=== PATIENT | female | born 1975 | race Caucasian/White ===

== ENCOUNTER 2018-08-17 07:33 | Day surgery (SDC) | payer OTHER ==
--- NOTE | 2018-08-17 07:16 | PDGENHP ---
History and Physical - Chief Complaint Preop: Multiple large endometriomas - History of Present Illness Corina is a 43 yo who is known to our clinic, has a h/o endometriosis with known endometriomas. Originally presented in Summer 2015 with ruptured hemorrhagic ovarian cyst to the ER and BP took her to the OR for DxLS, evac of hemoperitoneum, and found moderate endometriosis at that time. Endo at that time involved both ovaries and posterior culdesac and appendix was normal. Following that surgery she pursued 6 months of homeopathic tx for endometriosis , but F/u US approximately 1 yr later and saw the current endometriomas had appeared, but were smaller - 5 and 6cm on the right and 5cm on the left/ posterior. Surgery was discussed at that time, but pt deferred. Now presents with palpable, clearly enlarging cysts, sporadic pelvic pain. Dysmenorrhea. US in our office (07/28/18): Елена 8.3 x 3.4 x 5.1cm ES .47cm 3 Large appearing endometriomas #1 (largest) = Right superior, 8.7 x 7.1 x 8.2cm #2 = Right inferior, 4.6 x 4.3 x 4.3cm #3 = 8.8 x 5 x 5.1cm Both ovaries WNL, no FF seen History Information - Allergies/Home Medication List Allergies/Adverse Reactions: No Known Allergies Allergy (Unverified 11/04/15 11:33) Home Medications: Herbals/Supplements -Info Only 1 ea PO DAILY 11/05/15 [Last Taken 11/05/15] I have personally reviewed and updated: family history, medical history, social history, surgical history Past Medical History: Endometriosis - Surgical History Additional surgical history: DxLS 2016, Bilateral inguinal hernias, bilateral ACL, wisdom teeth - Social History Smoking Status: Never smoked Review of Systems Review of Systems: ROS: 10pt was reviewed & negative except for what was stated in HPI & below Physical Exam Physical Exam: Constitutional: no apparent distress, appears nourished, not in pain Eyes: PERRL Ears, Nose, Mouth, Throat: moist mucous membranes Respiratory: no respiratory distress Assessment & Plan Assessment: Preop: Robotically-assisted, diagnostic laparoscopy, bilateral ovarian cystectomies removal of endometriomas/endometriosis, possible oophorectomy, possible open. - Ancef 2 g. - Pyridium 200mg PO x 1 PREOP. - Routine preop orders. JM
[2018-08-17] MEDS ORDERED: PHENAZOPYRIDINE HCL 200 MG TAB PO ONE (07:46)
[2018-08-17] MEDS ORDERED: ceFAZolin 2 GM/DEXTROSE 100 ML IV ONE (07:46)
[2018-08-17] MEDS ORDERED: MIDAZOLAM 2 MG/2 ML VIAL IVP ONE ×2 (08:13→08:51)
--- NOTE | 2018-08-17 08:14 | PDANEPAE ---
ANE Past Medical History - Cardiovascular History Hx Hypertension: No Hx Arrhythmias: No Hx Chest Pain: No Hx Coronary Artery / Peripheral Vascular Disease: No Hx CHF / Valvular Disease: No Hx Palpitations: No - Pulmonary History Hx COPD: No Hx Asthma/Reactive Airway Disease: No Hx Recent Upper Respiratory Infection: No Hx Oxygen in Use at Home: No Hx Sleep Apnea: No Sleep Apnea Screening Result - Last Documented: Negative - Neurologic History Hx Cerebrovascular Accident: No Hx Seizures: No Hx Dementia: No - Endocrine History Hx Diabetes: No - Renal History Hx Renal Disorders: No - Liver History Hx Hepatic Disorders: No - Neurological & Psychiatric Hx Hx Neurological and Psychiatric Disorders: No - Cancer History Hx Cancer: No - Congenital Disorder History Hx Congenital Disorders: No - GI History Hx Gastrointestinal Disorders: No - Other Health History Other Health History: NONE - Chronic Pain History Chronic Pain: Yes (LOWER ABD) - Surgical History Prior Surgeries: LT OVARIAN CYSTECTOMY 11/05/15. SAYRA KNEE ACL. SAYRA ING HERNIA ANE Review of Systems Review of Systems: - Exercise capacity METS (RN): 6 METS ANE Patient History - Allergies Allergies/Adverse Reactions: No Known Allergies Allergy (Unverified 11/04/15 11:33) - Home Medications Home Medications: Herbals/Supplements -Info Only 1 ea PO DAILY 11/05/15 [Last Taken 1 Week Ago ~] - NPO status NPO Since - Liquids (Date): 08/17/18 NPO Since - Liquids (Time): 06:00 NPO Since - Solids (Date): 08/16/18 NPO Since - Solids (Time): 19:00 - Smoking Hx Smoking Status: Never smoked ANE Labs/Vital Signs - Vital Signs Blood Pressure: 135/71 Heart Rate: 90 Respiratory Rate: 16 O2 Sat (%): 100 Height: 166.37 cm Weight: 58.967 kg ANE Physical Exam - Airway Neck exam: FROM Mallampati Score: Class 2 Mouth exam: normal dental/mouth exam - Pulmonary Pulmonary: clear to auscultation - Cardiovascular Cardiovascular: regular rate and rhythym - ASA Status ASA Status: II ANE Anesthesia Plan Anesthesia Plan: general endotracheal anesthesia
[2018-08-17] MEDS ORDERED: BUPIVACAINE/EPI 0.5% 30 ML SDV ONE (08:15)
[2018-08-17] MEDS ORDERED: SCOPOLAMINE HYDROBROMIDE 1 MG/3 DAYS PATCH TD ONE ×2 (08:52→08:56)
[2018-08-17] MEDS ORDERED: HYDROmorphONE/DILAUDID 2 MG/ML INJ ONE ×2 (09:00→11:53)
[2018-08-17] MEDS ORDERED: PROPOFOL 200 MG/20 ML VIAL ONE (09:00)
[2018-08-17] MEDS ORDERED: PROPOFOL/EMULSION 500 MG/50 ML BOTTLE IV ONE ×2 (09:00→10:00)
[2018-08-17] MEDS ORDERED: fentaNYL 100 MCG/2 ML INJ ONE (09:00)
[2018-08-17] MEDS ORDERED: ROCURONIUM 50 MG/5 ML VIAL ONE (09:01)
[2018-08-17] MEDS ORDERED: DEXAMETHASONE 4 MG/ML VIAL ONE (09:06)
[2018-08-17] MEDS ORDERED: LIDOCAINE 2% 100 MG/5 ML SYR ONE (09:12)
[2018-08-17] MEDS ORDERED: GLYCOPYRROLATE 0.2 MG/1 ML VIAL ONE (09:46)
[2018-08-17] MEDS ORDERED: ePHEDrine SULFATE 25 MG/5 ML SYR ONE (09:50)
[2018-08-17] MEDS ORDERED: PHENYLEPHRINE HCL 100 MCG/ML SYR ONE (09:52)
[2018-08-17] MEDS ORDERED: ONDANSETRON 4 MG/2 ML VIAL ONE (11:13)
[2018-08-17] MEDS ORDERED: KETOROLAC 30 MG/1 ML SDV ONE (11:13)
[2018-08-17] MEDS ORDERED: ALBUTEROL 3 ML DEYVIAL IH PRN (11:23)
[2018-08-17] MEDS ORDERED: MEPERIDINE 25 MG/0.5 ML AMP IVP PRN (11:23)
[2018-08-17] MEDS ORDERED: HYDROCODONE/APAP 5/325 TAB PO PRN (11:23)
[2018-08-17] MEDS ORDERED: PROMETHAZINE HCL 25 MG/ML INJ IVP PRN (11:23)
[2018-08-17] MEDS ORDERED: METOCLOPRAMIDE 10 MG/2 ML VIAL IVP PRN (11:23)
[2018-08-17] MEDS ORDERED: LR 500 ML IV PRN (11:23)
[2018-08-17] MEDS ORDERED: ONDANSETRON 4 MG/2 ML VIAL IVP PRN ×2 (11:23→12:17)
[2018-08-17] MEDS ORDERED: NALOXONE HCL 0.4 MG/ML INJ IVP PRN (11:23)
[2018-08-17] MEDS ORDERED: DIAZEPAM 10 MG/2 ML SYR IVP PRN (11:23)
[2018-08-17] MEDS ORDERED: fentaNYL 100 MCG/2 ML INJ IVP PRN (11:23)
[2018-08-17] MEDS ORDERED: ACETAMINOPHEN 500 MG TAB PO PRN (11:23)
[2018-08-17] MEDS ORDERED: oxyCODONE IR 5 MG TAB PO PRN (11:23)
[2018-08-17] MEDS ORDERED: DEXAMETHASONE 4 MG/ML VIAL IVP PRN (11:23)
[2018-08-17] MEDS ORDERED: HYDROmorphONE/DILAUDID 1 MG/ML INJ IVP PRN (11:23)
[2018-08-17] MEDS ORDERED: METOCLOPRAMIDE 10 MG/2 ML VIAL ONE (11:48)
[2018-08-17] MEDS ORDERED: KETOROLAC 30 MG/1 ML SDV IVP ONE (12:17)
[2018-08-17] MEDS ORDERED: ONDANSETRON DISINTEGRATING 4 MG TAB PO PRN (12:17)
--- NOTE | 2018-08-17 12:17 | POSTOPPROG ---
Post Op Note Date of Operation: 08/17/18 Surgeon: Darion Schwartz
--- NOTE | 2018-08-17 14:10 | POSTANESTH ---
Post Anesthetic Evaluation Cardiovascular Status: Normal, Stable Respiratory Status: Normal, Stable Level of Consciousness/Mental Status: Can Participate in Eval Pain Control: Adequate, Prn Tx Ordered Nausea/Vomiting Control: Adequate, Prn Tx Ordered Complications Possibly Related to Anesthesia: None Noted
[2018-08-17] MEDS ORDERED: LR 1,000 ML IV SCH (16:00)
[2018-08-17 17:59] VITALS: BP 101/56
[2018-08-18] MEDS ORDERED: IBUPROFEN 600 MG TAB PO SCH (12:19)
== END 2018-08-17 17:40 | disposition home or self-care (01) ==
LOC: FSGY 07:33 → UNDOADMOB 12:17 → F3N 12:17 → UNDODISOB 17:40 → FSGY 17:40
PROVIDERS: ATTEND Obstetrics & Gynecology
DX: N80.1 Endometriosis of ovary (principal)
CPT/HCPCS: J0690; J1100; J1170; J1885; J2001; J2250; J2370; J2405; J2704; J2765; J3010